=== PATIENT | female | born 1940 | race Caucasian/White ===

== ENCOUNTER → 2017-05-24 | Emergency (ER) | payer OTHER ==
[~2017-05-24] VITALS: Ht 160 cm; Wt 68.9 kg
[~2017-05-24] MED LIST: CRESTOR10 MG PO; LEVAQUIN750 MG PO; LOTREL 5-10 MG1 CAP PO; MUPIROCIN22 GM TOP
== END | disposition home or self-care (01) ==
LOC: ER 11:47 → EDBD 11:56
DX: L03.115 Cellulitis of right lower limb (principal)